=== PATIENT | female | born 1990 | race Caucasian/White ===

== ENCOUNTER 2017-07-10 17:12 | Emergency (ER) | payer BC ==
[2017-07-10 17:53] VITALS: BP 128/73
[2017-07-10] MEDS ORDERED: Azithromycin TAB* 250 MG PO ONE (18:10)
--- NOTE | 2017-07-10 18:24 | UC ---
Throat Pain/Nasal Jose HPI - HPI Summary HPI Summary: TWO WEEKS OF BILATERAL EAR PAIN, SORE THROAT, CONGESTION - History of Current Complaint Chief Complaint: UCGeneralIllness Stated Complaint: SORE THROAT/EARS Time Seen by Provider: 07/10/17 17:40 Hx Obtained From: Patient Hx Last Menstrual Period: 06/21/17 Onset/Duration: Sudden Onset, Gradual Onset, Lasting Minutes Severity: Mild Cough: None Associated Signs & Symptoms: Positive: Hoarseness, Sinus Discomfort, Nasal Discharge - Epiglottits Risk Factors Epiglottis Risk Factors: Negative - Allergies/Home Medications Allergies/Adverse Reactions: Allergies Allergy/AdvReac Type Severity Reaction Status Date / Time Penicillins Allergy Intermediate Rash Verified 07/10/17 17:53 Sulfa Drugs Allergy Intermediate Rash Verified 07/10/17 17:53 PMH/Surg Hx/FS Hx/Imm Hx Previously Healthy: Yes - Surgical History Surgical History: Yes Surgery Procedure, Year, and Place: wisdom teeth extraction - Family History Known Family History: Negative: Respiratory Disease - Social History Occupation: Employed Full-time Lives: With Family Alcohol Use: None Substance Use Type: None Smoking Status (MU): Never Smoked Tobacco - Immunization History Most Recent Influenza Vaccination: NOT CURRENT Review of Systems Constitutional: Negative Skin: Negative Eyes: Negative ENT: Sore Throat, Ear Ache, Sinus Congestion Respiratory: Negative Cardiovascular: Negative Gastrointestinal: Negative Genitourinary: Negative Motor: Negative Neurovascular: Negative Musculoskeletal: Negative Neurological: Negative Psychological: Negative Is Patient Immunocompromised?: No All Other Systems Reviewed And Are Negative: Yes Physical Exam Triage Information Reviewed: Yes Appearance: Well-Appearing, No Pain Distress, Well-Nourished Vital Signs: Initial Vital Signs Temp 97.1 F 07/10/17 17:46 Pulse 68 07/10/17 17:46 Resp 18 07/10/17 17:46 BP 128/73 07/10/17 17:46 Pulse Ox 100 07/10/17 17:46 Vital Signs Reviewed: Yes Eye Exam: Normal ENT: Positive: Normal ENT inspection, Hearing grossly normal, Pharynx normal, TM bulging, TM dull Dental Exam: Normal Neck exam: Normal Neck: Positive: Supple, Nontender, No Lymphadenopathy Respiratory Exam: Normal Respiratory: Positive: Chest non-tender, Lungs clear, Normal breath sounds, No respiratory distress, No accessory muscle use Cardiovascular Exam: Normal Cardiovascular: Positive: RRR, No Murmur, Pulses Normal, Brisk Capillary Refill Abdominal Exam: Normal Musculoskeletal Exam: Normal Musculoskeletal: Positive: Strength Intact, ROM Intact Neurological Exam: Normal Psychological Exam: Normal Throat Pain/Nasal Course/Dx - Differential Dx/Diagnosis Differential Diagnosis/HQI/PQRI: Peritonsillar Abscess, Pharyngitis, Sinusitis, Tonsillitis Provider Diagnoses: SINUSITIS; OTITIS SEROUS Discharge - Discharge Plan Condition: Stable Disposition: HOME Prescriptions: Azithromycin TAB* [Zithromax TAB (Z-PRANEETH) 250 mg #6 tabs] 250 mg PO DAILY #6 tab Patient Education Materials: Sinusitis (ED) Referrals: LM Tucker [Primary Care Provider] -
== END 2017-07-10 18:17 | disposition home or self-care (01) ==
LOC: UCCORT 17:12
DX: J32.9 Chronic sinusitis, unspecified (principal); H65.93 Unspecified nonsuppurative otitis media, bilateral; Z88.0 Allergy status to penicillin; Z88.2 Allergy status to sulfonamides
CPT/HCPCS: 87651; 99212; A9270-GY; G0463

== ENCOUNTER 2018-01-02 19:51 | Emergency (ER) | payer BC ==
--- NOTE | 2018-01-02 20:18 | UC ---
Skin Complaint HPI - HPI Summary HPI Summary: pt states she has a hx of abscesses to her arm pits that swell and then go away. she has had one in her L arm pit for about 2.5 weeks. she was seen by n 10 days ago and it needed no tx. the site has since opened and is draining green puss. she denies fever. she has a hx of MRSA. she is currently 21 weeks . - History of Current Complaint Chief Complaint: UCSkin Time Seen by Provider: 01/02/18 20:11 Stated Complaint: OPEN WOUND ARMPIT Hx Last Menstrual Period: 06/21/17 Onset/Duration: Gradual Onset Timing: Constant Aggravating Factor(s): Nothing - Allergy/Home Medications Allergies/Adverse Reactions: Allergies Allergy/AdvReac Type Severity Reaction Status Date / Time Penicillins Allergy Intermediate Rash Verified 01/02/18 20:09 Sulfa (Sulfonamide Allergy Intermediate Rash Verified 01/02/18 20:09 Antibiotics) Home Medications: Home Medications Vit 108/Iron/Folic AC [ One Tablet] 1 tab DAILY 01/02/18 [ History Confirmed 01/02/18] Review of Systems Constitutional: Negative Skin: Other - abscess L axilla Eyes: Negative ENT: Negative Respiratory: Negative Cardiovascular: Negative Gastrointestinal: Negative Genitourinary: Negative Motor: Negative Neurovascular: Negative Musculoskeletal: Negative Neurological: Negative Psychological: Negative Is Patient Immunocompromised?: No All Other Systems Reviewed And Are Negative: Yes PMH/Surg Hx/FS Hx/Imm Hx - Additional Past Medical History Additional PMH: 21 weeks , mrsa, hidradenitis suppurative - Surgical History Surgical History: Yes Surgery Procedure, Year, and Place: wisdom teeth extraction - Family History Known Family History: Negative: Respiratory Disease - Social History Lives: With Family Alcohol Use: None Substance Use Type: None Smoking Status (MU): Never Smoked Tobacco - Immunization History Most Recent Influenza Vaccination: NOT CURRENT Vaccination Up to Date: Yes Physical Exam Triage Information Reviewed: Yes Appearance: Well-Appearing Vital Signs Reviewed: Yes Eyes: Positive: Conjunctiva Clear ENT: Positive: Normal ENT inspection Neck: Positive: Supple, Nontender, No Lymphadenopathy Respiratory: Positive: Lungs clear, Normal breath sounds Cardiovascular: Positive: RRR, No Murmur Abdomen Description: Positive: Other: - Gradid, + BS, soft, non tender, no hsm. Musculoskeletal: Positive: ROM Intact Neurological: Positive: Alert Psychological: Positive: Age Appropriate Behavior Skin Exam: Normal, Other - L axilla-1cm area that is open. no bleeding. area is tender but not indurated. pressure expressed a drop of puss. explored with a sterile Q tip, about 1cm depth but no pockets and not more puss. no adenopathy. Course/Dx - Course Course Of Treatment: nothing to I&D, site already drained. pt to flush and soak with warm water then apply a topical -bacitracin. no cellulitis thus no po antibiotics. site covered with sterile gauze and held with a piece of paper tape. - Diagnoses Provider Diagnoses: abscess L axilla Discharge - Sign-Out/Discharge Documenting (check all that apply): Discharge/Admit/Transfer - Discharge Plan Condition: Stable Disposition: HOME Prescriptions: Mupirocin 2% OINT* [Bactroban 2 % Oint*] 1 applic TOPICAL BID 7 Days #1 tube Patient Education Materials: Abscess (ED) Referrals: Alessandra Lu MD [Primary Care Provider] - 3 Days - Billing Disposition and Condition Condition: STABLE Disposition: Home
[2018-01-02 20:21] VITALS: BP 124/68
== END 2018-01-02 20:45 | disposition home or self-care (01) ==
LOC: UCCORT 19:51
DX: L02.412 Cutaneous abscess of left axilla (principal); O26.892 Other specified pregnancy related conditions, second trimester; Z3A.21 21 weeks gestation of pregnancy
CPT/HCPCS: 99212; G0463